=== PATIENT | female | born 1965 | race Caucasian/White ===

== ENCOUNTER → 2020-02-28 13:32 | Outpatient (CLI) | payer OTHER, SELFPAY ==
--- NOTE | ~2020-02-28 | MM_ITS ---
EXAMINATION: MM screening herbert BI w jerry HISTORY: Screening TECHNIQUE: Craniocaudal and mediolateral oblique 3-D tomosynthesis images were obtained and synthetic 2-D images were generated. CAD analysis was submitted and interpreted. COMPARISON: Comparison to multiple prior studies sequentially, with oldest reviewed study dated 01/24. BREAST PARENCHYMAL COMPOSITION: There are scattered areas of fibroglandular density. FINDINGS: There is no evidence of suspicious mass, calcification, or architectural distortion to sugg est malignancy in either breast. There has been no suspicious interval change. IMPRESSION: 1. No mammographic evidence of malignancy. 2. Recommend routine screening mammography in one year. BI-RADS Category 1: Negative Reviewed, dictated and finalized at location A. 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
== END ==
PROVIDERS: PCP Family Medicine; Visit Provider Nurse Practitioner
DX: Z12.31 Encounter for screening mammogram for malignant neoplasm of breast (principal)
CPT/HCPCS: 77063; 77067

== ENCOUNTER → 2020-05-04 12:13 | Outpatient (CLI) | payer OTHER, SELFPAY ==
--- NOTE | ~2020-05-04 | DEXA_ITS ---
Bone Density Report Name: Vanessa Do Age: 54 Sex: Female Ethnicity: White Date of : 1965 Indication: osteopenia; monitoring treatment; height loss; postmenopausal Referring Provider: BRENDA, CARLOS ENRIQUE Study: Bone densitometry was performed. Exam Date: May 04, 2020 Accession number: [id number] Bone Density: Region BMD T-score Z-score Classification AP Spine (L1, L2) 0.800 -1.6 -0.6 Osteopenia Femoral Neck (Left) 0.640 -1.9 -0.8 Osteopenia Total Hip (Left) 0.686 -2.1 -1.4 Osteopenia Femoral Neck (Right) 0.723 -1.1 0.0 Osteopenia Total Hip (Right) 0.699 -2.0 -1.3 Osteopenia Total Hip Mean 0.693 -2.1 -1.4 Osteopenia World Health Organization criteria for BMD impression classify patients as: Normal (T-score at or above -1.0), Osteopenia (T-score between -1.0 and -2.5), or Osteoporosis (T-score at or below -2.5). 10-year Fracture Risk: FRAX not reported because: Treated for osteoporosis Previous Exams: Region Exam Age BMD T-score BMD Change BMD Change Date g/cm2 vs Baseline vs Previous AP Spine(L1, L2) 05/04/2020 54 0.800 -1.6 -0.058* -0.058* 01/30/2018 52 0.858 -1.1 Total Hip(Left) 05/04/2020 54 0.686 -2.1 -0.013 -0.013 01/30/2018 52 0.698 -2.0 Total Hip(Right) 05/04/2020 54 0.699 -2.0 0.003 0.003 01/30/2018 52 0.695 -2.0 *Denotes significance at 95% confidence level, LSC for AP Spine = 0.022 g/cm2, LSC for Total Hip = 0.027 g/cm2 Clinical Information Provided by Patient: Is being treated for osteoporosis Has used the following medications: Boniva (i.e. ibandronate), Vitamin D, Calcium Patient maximum height was 68 Menopause Age: 50 No regular weight bearing exercise Drinks caffeinated beverages Onset of menses at age 11 Number of children 3 Impression: The patient has low bone mass, based on the Left Total Hip T-score. The BMD for the AP Spine(L1, L2) decreased, changing by -0.058 since the last DXA exam. Discussion: SIGNIFICANT BONE LOSS OBSERVED. Adherence to therapy (including calcium and vitamin D intake) should be assessed. If compliance is not a factor, review management and exclusion of secondary causes of bone loss. It is important to ask patients whether they are taking their medications and to encourage continued and appropriate compliance with their osteoporosis therapies to reduce fracture risk. It is also important to review their risk factors and encourag
--- NOTE | ~2020-05-04 | US_ITS ---
EXAMINATION: US thyroid DATE: 05/04/2020 12:49 INDICATION: Thyroid nodule. TECHNIQUE: Multiple ultrasound images of the thyroid were obtained. COMPARISON: Thyroid ultrasound 03/26/2019, 01/30/2018 FINDINGS: The right thyroid lobe measures 4.8 x 2.0 x 1.8 cm. The left thyroid lobe measures 4.1 x 1.4 x 1.4 c m. The thyroid demonstrates heterogeneous echogenicity. Vascularity is normal. There is a 4 mm nodule in left thyroid lobe. IMPRESSION: 1. Small left thyroid nodule, likely not clinically significant. No follow-up is needed. Reviewed, dictated and finalized at location A. 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 Small left thyroid nodule, likely not clinically significant. No follow-up i s needed.
== END ==
PROVIDERS: Visit Provider Nurse Practitioner
DX: E04.1 Nontoxic single thyroid nodule (principal); M85.852 Other specified disorders of bone density and structure, left thigh; M85.851 Other specified disorders of bone density and structure, right thigh
CPT/HCPCS: 76536; 77080

== ENCOUNTER → 2022-01-18 11:20 | Outpatient (CLI) | payer OTHER, SELFPAY ==
--- NOTE | ~2022-01-18 | MM_ITS ---
EXAMINATION: MM screening herbert BI w jerry HISTORY: Screening mammogram TECHNIQUE: Craniocaudal and mediolateral oblique 3-D tomosynthesis images were obtained and synthetic 2-D images were generated. CAD analysis was submitted and interpreted. COMPARISON: 02/28/2020, 01/30/2018, 02/10/2016 bilateral screening mammogram examinations BREAST PARENCHYMAL COMPOSITION: There are scattered areas of fibroglandular density. FINDINGS: There is no evidence of suspicious mass, calcification, or architectural distortion to sugg est malignancy in either breast. There has been no suspicious interval change. IMPRESSION: 1. No mammographic evidence of malignancy. 2. Recommend routine screening mammography in one year. BI-RADS Category 1: Negative Reviewed, dictated and finalized at location A.
== END ==
PROVIDERS: PCP Family Medicine; Visit Provider Nurse Practitioner
DX: Z12.31 Encounter for screening mammogram for malignant neoplasm of breast (principal)
CPT/HCPCS: 77063; 77067

== ENCOUNTER → 2023-01-31 11:03 | Outpatient (CLI) | payer OTHER, SELFPAY ==
--- NOTE | ~2023-01-31 | MM_ITS ---
EXAMINATION: MM screening herbert BI w jerry HISTORY: Screening mammogram TECHNIQUE: Craniocaudal and mediolateral oblique 3-D tomosynthesis images were obtained and synthetic 2-D images were generated. CAD analysis was submitted and interpreted. COMPARISON: 01/18/2022, 02/28/2020, 01/30/2018 bilateral screening mammogram examinations BREAST PARENCHYMAL COMPOSITION: There are scattered areas of fibroglandular density. FINDINGS: There is no evidence of suspicious mass, calcification, or architectural distortion to sugg est malignancy in either breast. There has been no suspicious interval change. IMPRESSION: 1. No mammographic evidence of malignancy. 2. Recommend routine screening mammography in one year. BI-RADS Category 1: Negative Reviewed, dictated and finalized at location A.
--- NOTE | ~2023-01-31 | DEXA_ITS ---
Bone Density Report Name: LIS HORNE Age: 57 Sex: Female Ethnicity: White Date of : 1965 Indication: osteopenia; monitoring treatment; height loss; prior fracture; postmenopausal Referring Provider: BRENDA, CARLOS ENRIQUE Study: Bone densitometry was performed. Exam Date: January 31, 2023 Accession number: [id number] There is hypertrophic degenerative change of the lumbar spine, which results in higher than expected spine bone mineral density measurements. These spine BMD and T score and Z score measurements are not reflective of the patient's true general bone mineral density. Bone Density: Region BMD T-score Z-score Classification AP Spine (L1, L2) 0.994 0.1 1.4 Normal Femoral Neck (Left) 0.652 -1.8 -0.6 Osteopenia Total Hip (Left) 0.694 -2.0 -1.2 Osteopenia Femoral Neck (Right) 0.750 -0.9 0.3 Normal Total Hip (Right) 0.699 -2.0 -1.1 Osteopenia Total Hip Mean 0.697 -2.0 -1.2 Osteopenia World Health Organization criteria for BMD impression classify patients as: Normal (T-score at or above -1.0), Osteopenia (T-score between -1.0 and -2.5), or Osteoporosis (T-score at or below -2.5). 10-year Fracture Risk: FRAX not reported because: Treated for osteoporosis Previous Exams: Region Exam Age BMD T-score BMD Change BMD Change Date g/cm2 vs Baseline vs Previous AP Spine(L1, L2) 01/31/2023 57 0.994 0.1 0.136* 0.194* 05/04/2020 54 0.800 -1.6 -0.058* -0.058* 01/30/2018 52 0.858 -1.1 Total Hip(Left) 01/31/2023 57 0.694 -2.0 -0.005 0.008 05/04/2020 54 0.686 -2.1 -0.013 -0.013 01/30/2018 52 0.698 -2.0 Total Hip(Right) 01/31/2023 57 0.699 -2.0 0.003 0.000 05/04/2020 54 0.699 -2.0 0.003 0.003 01/30/2018 52 0.695 -2.0 *Denotes significance at 95% confidence level, LSC for AP Spine = 0.022 g/cm2, LSC for Total Hip = 0.027 g/cm2 Clinical Information Provided by Patient: Has had a low trauma fracture Is being treated for osteoporosis Has used the following medications: Boniva (i.e. ibandronate), [employer] Patient maximum height was 68 Menopause Age: 50 No regular weight bearing exercise Drinks caffeinated beverages Onset of menses at age 11 Number of children 3 Impression: The patient has low bone mass, based on the Left Total Hip T-score. The patient has risk factors, including: previous fracture. No significant bone lo
== END ==
PROVIDERS: PCP Nurse Practitioner; Visit Provider Nurse Practitioner
DX: Z12.31 Encounter for screening mammogram for malignant neoplasm of breast (principal); M85.88 Other specified disorders of bone density and structure, other site
CPT/HCPCS: 77063; 77067; 77080

== ENCOUNTER → 2023-04-04 16:56 | Outpatient (CLI) | payer OTHER, SELFPAY ==
--- NOTE | ~2023-04-04 | XR_ITS ---
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 RESULT: Lines, tubes, and devices: None. Lungs and pleura: Mild diffuse reticulonodular opacities. Ill-defined opacity in the left upper lung . Cardiomediastinal silhouette: Stable. Other: No acute osseous or upper abdominal finding. IMPRESSION: Ill-defined nodular opacity in the left upper lung, recommend low-dose CT scan of the chest without c ontrast for further evaluation. Mild diffuse reticular nodular opacities may represent respiratory bronchiolitis in the appropriate c linical context Reviewed, dictated and finalized at location K. UM EVAPORATION OPERATOR IMPRESSION: Ill-defined nodular opacity in the left upper lung, recommend low-dose CT scan of the chest without contrast for further evaluation. Mild diffuse reticular nodular opacities may represent respiratory bronchioliti s in the appropriate clinical context
== END ==
PROVIDERS: PCP Family Medicine; Visit Provider Physician Assistant Medical
DX: R91.8 Other nonspecific abnormal finding of lung field (principal); R05.3 Chronic cough
CPT/HCPCS: 71046

== ENCOUNTER → 2023-04-14 14:48 | Outpatient (CLI) | payer OTHER, SELFPAY ==
--- NOTE | ~2023-04-14 | CT_ITS ---
EXAMINATION: CT diagnostic chest wo con DATE: 04/14/2023 15:02 INDICATION: Wheezing. Ill-defined nodular opacity in left upper lung reported on 04/04/2023 2 view chest TECHNIQUE: Computed tomography (CT) of the chest was performed without intravenous contrast. Automate d exposure control and iterative reconstruction technique were employed. Exam dose: 159.15 mGy-cm to jerry exam DLP. COMPARISON: 04/04/2023 2 view chest FINDINGS: No pulmonary infiltrate or consolidation or pulmonary mass lesion is detected. No hilar or mediastinal mass lesion or lymphadenopathy. Normal heart size. Coronary artery calcification. No thoracic aortic aneurysm. Small sliding hiatal hernia. Normal morphology of the adrenal glands. Old healed right lateral eighth rib fracture. IMPRESSION: No pulmonary mass lesion is detected Small sliding hiatal hernia Reviewed, dictated and finalized at Location A. Reviewed, dictated and finalized at location A. NAGE ENGINEER
== END ==
PROVIDERS: PCP Family Medicine; Visit Provider Physician Assistant Medical
DX: R91.8 Other nonspecific abnormal finding of lung field (principal); K44.9 Diaphragmatic hernia without obstruction or gangrene
CPT/HCPCS: 71250

== ENCOUNTER 2024-08-05 15:02 | Outpatient (CLI) | payer OTHER, SELFPAY ==
--- NOTE | ~2024-08-05 | MM_ITS ---
EXAMINATION: MM screening herbert BI w jerry HISTORY: Screening TECHNIQUE: Craniocaudal and mediolateral oblique 3-D tomosynthesis images were obtained and synthetic 2-D images were generated. CAD analysis was submitted and interpreted. COMPARISON: Comparison to multiple prior studies sequentially, with oldest reviewed study dated 01/22. BREAST PARENCHYMAL COMPOSITION: Not dense: There are scattered areas of fibroglandular density. FINDINGS: There is no evidence of suspicious mass, calcification, or architectural distortion to sugg est malignancy in either breast. There has been no suspicious interval change. IMPRESSION: 1. No mammographic evidence of malignancy. 2. Recommend routine screening mammography in one year. BI-RADS Category 1: Negative Reviewed, dictated and finalized at location B.
== END 2024-08-05 15:03 | disposition home or self-care (01) ==
LOC: MICIMG 15:03
PROVIDERS: PCP Family Medicine; Visit Provider Nurse Practitioner
DX: Z12.31 Encounter for screening mammogram for malignant neoplasm of breast (principal)
CPT/HCPCS: 77063; 77067